=== PATIENT | female | born 1995 | race Two or more races ===

== ENCOUNTER 2022-03-09 09:27 | Emergency (ER) | payer MEDICAID ==
[~2022-03-09] VITALS: Ht 154.9 cm; Wt 70.4 kg
[2022-03-09 09:40] VITALS: BP 139/88
[2022-03-09] MEDS ORDERED: AZIT500T66 PO (10:50)
[2022-03-09] MEDS ORDERED: PROM1SOL4 PO (10:50)
== END 2022-03-09 11:24 | disposition home or self-care (01) ==
LOC: ER 09:27
DX: J20.9 Acute bronchitis, unspecified (principal); Z90.49 Acquired absence of other specified parts of digestive tract
CPT/HCPCS: 71045

== ENCOUNTER 2023-11-28 08:52 | Emergency (ER) | payer MEDICAID, OTHER ==
[~2023-11-28] VITALS: Ht 152.4 cm; Wt 66.0 kg
[~2023-11-28 08:52] MED LIST: AZIT500T66 PO; PROM1SOL4 PO
[2023-11-28 10:39] LABS: Urine Bacteria None Seen /hpf (None Seen)
[2023-11-28 11:08] LABS: Basophils # (auto) 0 10 ^3/uL (0-0.2); Eosinophils # (auto) 0.1 10 ^3/uL (0-0.8); Eosinophils % (auto) 1.9 % (0.0-7.0); Monocytes # (auto) 0.5 10 ^3/uL (0-1.3); Neutrophils # (auto) 3.9 10 ^3/uL (1.6-8.6); White Blood Cell 6.4 10^3/uL (4.4-10.8)
[2023-11-28 11:11] LABS: Basophils % (auto) 0.6 % (0.0-2.0); Hematocrit 32.5 % (36.0-46.0); Hemoglobin 10.1 g/dL (12.2-16.2); Lymphocytes # (auto) 1.8 10 ^3/uL (0.4-5.4); Lymphocytes % (auto) 28.6 % (10.0-50.0); Mean Corpuscular Hemoglobin 23.2 pg (28.0-32.0); Mean Corpuscular Hgb Conc. 31.2 g/dL (32.0-36.0); Mean Corpuscular Volume 74.4 fL (80.0-100.0); Monocytes % (auto) 7.8 % (0.0-12.0); Neutrophils % (auto) 61.1 % (37.0-80.0); Red Blood Cells 4.37 10^6/uL (4.0-5.20); Red Cell Distribution Width 19.9 % (11.8-14.3)
[2023-11-28 11:23] LABS: Albumin 4.3 g/dL (3.2-4.8); Alkaline Phosphatase 76 U/L (46-116); Anion Gap 4 (5-15); Aspartate Aminotransferase 11 U/L (13-40); BUN/Creatinine Ratio 10.5 (10.0-20.0); Blood Urea Nitrogen 8 mg/dL (9-23); Calcium 9.3 mg/dL (8.7-10.4); Carbon Dioxide 27 mmol/L (20-30); Chloride 107 mmol/L (98-107); Glucose 86 mg/dL (74-106); Sodium 138 mmol/L (136-145)
[2023-11-28 11:24] LABS: Bilirubin, Total 0.6 mg/dL (0.2-1.0); Total Protein 7.5 g/dL (5.7-8.2)
[2023-11-28 11:27] LABS: Alanine Aminotransferase < 9 U/L (7-40)
[2023-11-28 11:28] LABS: Urine Blood 3+ /uL (Negative); Urine Clarity Clear (Clear); Urine Color Light-Yellow (Yellow); Urine Mucus FEW (None Seen); Urine Protein, UAD Negative (Negative); Urine Urobilinogen Normal (Negative); Urine WBC 2 /hpf (0 - 5)
[2023-11-28 13:02] VITALS: BP 117/63; PULSE 60; RESP 17; TEMP 98.6; O2SAT 100
== END 2023-11-28 14:47 | disposition home or self-care (01) ==
LOC: ER 09:01
DX: O03.9 Complete or unspecified spontaneous abortion without complication (principal); R10.2 Pelvic and perineal pain; O99.011 Anemia complicating pregnancy, first trimester; Z3A.01 Less than 8 weeks gestation of pregnancy; Z98.890 Other specified postprocedural states; Z79.899 Other long term (current) drug therapy
CPT/HCPCS: 36415; 76856; 80053; 81001; 84702; 85025; 86850; 86900; 86901

== ENCOUNTER 2024-06-30 15:58 | Emergency (ER) | payer MEDICAID, OTHER ==
[~2024-06-30] VITALS: Ht 167.6 cm; Wt 76.6 kg
[2024-06-30 16:12] VITALS: BP 129/82; PULSE 85; RESP 18; TEMP 98.1; O2SAT 97
--- NOTE | 2024-06-30 17:05 | ED.PDOC ---
History of Present Illness HPI Comments 28 y.o female presents to the ED for a chief complaint of a productive cough associated with clear phlegm that started one month ago but has worsened the past 2-3 days. Patient denies any other associating symptoms and states son is currently sick with similar symptoms as her. She reports a medical history of anemia. Chief Complaint: Flu like Time Seen by MD: 16:54 Reviewed Notes: Nurses Notes, Medications, Allergies Allergies: Coded Allergies: NO KNOWN ALLERGIES (Unverified , 03/09/22) Home Meds Active Scripts Promethazine-Dm (Promethazine Dm 6.25-15 mg/5Ml) 1 Ashley Ashley, 5 ML PO DAILY, #160 ML Prov:MARILOU HERNANDEZ 03/09/22 Azithromycin (Azithromycin) 500 Mg Tab, 500 MG PO DAILY, #5 TAB Prov:MARILOU HERNANDEZ 03/09/22 Information Source: Patient Mode of Arrival: Ambulatory Severity: Mild Timing: Months (1) Duration: Since onset Prehospital treatment: None Associated signs and symptoms Sore throat and cough Past Medical History PAST MEDICAL HISTORY: Anemia Surgical History: Cholecystectomy Surgical History (Other): left knee BASKET SORTER History: No Pertinent BASKET SORTER History Family History Family History: Reviewed,noncontributory to illness Social History Smoker: Non-Smoker Alcohol: Occasionally Drugs: Denies Drug Use Lives In: Home Constitutional: denies: chills, diaphoresis, fatigue, fever, malaise, sweats, weakness, others EENTM: reports: others (The pain); denies: blurred vision, double vision, ear bleeding, ear discharge, ear drainage, ear pain, ear ringing, eye pain, eye redness, hearing loss, mouth pain, mouth swelling, nasal discharge, nose bleeding, nose congestion, nose pain, photophobia, tearing, throat pain, throat swelling, voice changes Respiratory: reports: cough; denies: hemoptysis, orthopnea, SOB at rest, shortness of breath, SOB with excertion, stridor, wheezing, others Cardiovascular: denies: chest pain, dizzy spells, diaphoresis, Dyspnea on exertion, edema, irregular heart beat, left arm pain, lightheadedness, palpitat ions, PND, syncope, others Gastrointestinal: denies: abdomen distended, abdominal pain, blood streaked bow els, constipated, diarrhea, dysphagia, difficulty swallowing, hematemesis, melena, nausea, poor appetite, poor fluid intake, rectal bleeding, rectal pain, vomiting, others Genitourinary: denies: abnormal vagina bleeding, burning, dyspareunia, dysuria, flank pain, frequency, hematuria, incontinence, pain, , vagina discharge, urgency, others Neurological: denies: dizziness, fainting, headache, left sided numbness, left sided weakness, numbness, paresthesia, pre-existing deficit, right sided numbness, right sided weakness, seizure, speech problems, tingling, tremors, weakness, others Musculoskeletal: denies: back pain, gout, joint pain, joint swelling, muscle pain, muscle stiffness, neck pain, others Integumetry: denies: bruises, change in color, change in hair/nails, dryness, laceration, lesions, lumps, rash, wounds, others Allergic/Immunocompromised: denies: Difficulty Healing, Frequent Infections, Hives, Itching, others Hematologic/Lymphatic: denies: anemia, blood clots, easy bleeding, easy bruisi ng, swollen glands, others Endocrine: denies: excessive hunger, excessive sweating, excessive thirst, exce ssive urination, flushing, intolerance to cold, intolerance to heat, unexplained weight gain, unexplained weight loss, others Psychiatric: denies: anxiety, bipolar disorder, depression, hopeless, panic disorder, schizophrenia, sleepless, suicidal, others All Other Systems: Reviewed and Negative Physical Exam General Appearance: No Apparent Distress HEENT: Normal ENT Inspection, Pharynx Normal, TMs Normal Neck: Full Range of Motion, Non-Tender, Normal, Normal Inspection Respiratory: Chest Non-Tender, Lungs Clear, No Accessory Muscle Use, No Respiratory Distress, Normal Breath Sounds Cardiovascular: No Edema, No JVD, No Murmur, No Gallop, Normal Peripheral Pulses, Regular Rate/Rhythm Breast Exam: Deferred Gastrointestinal: No Organomegaly, Non Tender, No Pulsatile Mass, Normal Bowel Sounds, Soft Genitalia: Deferred Pelvic: Deferred Rectal: Deferred Extremities: No calf tenderness, Normal capillary refill, Normal inspection, Normal range of motion, Non-tender, No pedal edema Musculoskeletal : Apperance: Normal Neurologic: Alert, pediatric sports medicine specialist II-XII nml as Tested, No Motor Deficits, Normal Affect, Normal Mood, No Sensory Deficits Cerebellar Function: Normal Reflexes: Normal Skin: Dry, Normal Color, Warm Lymphatic: No Adenopathy Was a procedure done? Was a procedure done?: No Differential Dx Considerations may include: URI, Viral Syndrome, Dehydration, Influenza, bronchitis. X-Ray, Labs, Meds, VS Vital Signs Date Time Temp Pulse Resp B/P (MAP) Pulse Ox O2 Delivery O2 Flow Rate FiO2 06/30/24 16:12 98.1 85 18 129/82 (98) 97 98.1 06/30/24 16:12 97 Room Air* 0 21 At this time, the patient was being discharged The patient will follow up with the primary care doctor The patient will return to the emergency department's condition worsens The patient was diagnosis is viral syndrome Time of 1ST Reevaluation: 17:03 Reevaluation 1ST: Unchanged Patient Education/Counseling: Diagnosis, Treatment, Prognosis, Need For Follow Up Family Education/Counseling: No Family Present Departure 1 Departure Time of Disposition: 18:31 Impression: Primary Impression: Viral syndrome Disposition: 01 HOME / SELF CARE / HOMELESS Condition: Fair Discharged With: Self Critical Care Note Critical Care Time?: No Stability Stability form required: No I personally scribed for JUAN FALLON MD ([email or web address]) on 06/30/24 at 17:05. Electronically submitted by Analia Levi ([facility]). JUAN FALLON MD Jun 30, 2024 17:05
== END 2024-06-30 20:20 | disposition home or self-care (01) ==
LOC: ER 15:58
DX: B34.9 Viral infection, unspecified (principal); Z90.49 Acquired absence of other specified parts of digestive tract; Z98.890 Other specified postprocedural states